=== PATIENT | female | born 1965 | race Caucasian/White ===

== ENCOUNTER 2017-08-20 18:04 | Emergency (ER) | payer OTHER ==
[~2017-08-20] VITALS: Ht 157.5 cm; Wt 62.4 kg
[2017-08-20] MEDS ORDERED: VENTOLIN HFA18 GM IH (23:31)
[2017-08-20] MEDS ORDERED: ZOFRAN4 MG PO (23:31)
[2017-08-20] MEDS ORDERED: PREDNISONE20 MG PO (23:31)
[2017-08-20 23:55] VITALS: BP 99/55
== END 2017-08-20 23:56 | disposition home or self-care (01) ==
LOC: EME 18:04 → EXP 18:04
DX: J10.1 Influenza due to other identified influenza virus with other respiratory manifestations (principal)
CPT/HCPCS: 71046; 87502; 94640; 99281; 99284